=== PATIENT | male | born 1940 | race Caucasian/White ===

== ENCOUNTER → 2016-12-13 | Outpatient (CLI) | payer OTHER ==
[~2016-12-13] MED LIST: ALBUAER INH; ALLO100T PO; ATOR-14 PO; CLC100X PO; CLON0.5T3 PO; CLOP1TAB54 PO; CRAN500C5 PO; CYAN10005 PO; DICL1GEL12 TOP; DONE10TA12 PO; DONE5TAB9 PO; ENTE1TAB2 PO; FEXO1TAB46 PO; HYDR25TA5 PO; IPRASOL4 INH; KFL/250 PO; LEVO-366 PO; LEVO100T PO; LISI40TA PO; LUTE1CAP6 PO; MCRK/10 PO; MELA1CAP9 PO; MELA1TAB3 PO; MEMA1CAP7 PO; MENTOIN TOP; METO25TA3 PO; MULTIVIT PO; NZRCR TOP; OLAN-111 PO; OMEG10007 PO; OMEGCAP2 PO; POTA-327 PO; PSYLCAP5 PO; SYMIN160 INH; VIT D PO; ZNTT/150 PO
[2016-12-13 17:42] LABS: BASO % 0.4 %; BASO ABS # 0.03 K/uL (0-0.2); COMPLETE YES; EOS % 1.8 %; HEMATOCRIT 37.1 % (42-52); IG% 0.3 %; LYMPH % 14.7 %; LYMPH ABS # 1.17 K/uL (1.2-3.4); MEAN CORPUSCULAR HEMOGLOBIN 31.4 pg (25-34); MEAN CORPUSCULAR HGB CONC 35.3 g/dl (32-36); MEAN PLATELET VOLUME 9.5 fL (7.4-10.4); MONO % 8.1 %; NEUT % 74.7 %; PLATELET COUNT 199 K/uL (130-400); RED BLOOD COUNT 4.17 M/uL (4.7-6.1); WHITE BLOOD COUNT 7.98 K/uL (4.8-10.8)
[2016-12-13 17:46] LABS: BLOOD UREA NITROGEN 17 mg/dl (7-18); BUN/CREATININE RATIO 17.5 (10-20); CALCIUM 8.2 mg/dl (8.5-10.1); CARBON DIOXIDE 29 mmol/L (21-32); CHLORIDE 108 mmol/L (98-107); GLUCOSE 102 mg/dl (70-99); POTASSIUM 3.9 mmol/L (3.5-5.1); SODIUM 144 mmol/L (136-145)
[2016-12-13 17:57] LABS: ALB/GLOB RATIO 0.7 (0.9-2); ALKALINE PHOSPHATASE 59 U/L (45-117); ALT/SGPT 19 U/L (12-78); AST/SGOT 13 U/L (15-37); CHOLESTEROL 157 mg/dl (0-200); CHOLESTEROL/HDL RATIO 5.6; HDL CHOLESTEROL 28 mg/dl; LDL CHOLESTEROL CALCULATED 95 mg/dl; TRIGLYCERIDES 168 mg/dl (0-150); VERY LOW DENSITY LIPOPROT CALC 34 mg/dl
--- NOTE | 2016-12-17 10:18 | CODING QUERY MEDICAL NECESSITY ---
SUPPORTING DIAGNOSIS NEEDED A supporting diagnosis is required for the test/procedure performed on this patient in order for us to be reimbursed by the patient's insurance. Please provide a supporting diagnosis for the following test/procedure listed below next to the test name along with your signature. *If there is no additional diagnosis for this patient that would support the following test/procedure please document that below next to the test/procedure. Test(s)/Procedure(s) that require a supporting diagnosis: DOS 12/13 * PSA DIAGNOSIS: Provider Signature: Date: Thank you [facility] Once completed, please kindly fax back to [phone] For questions please call [phone]
== END | disposition home or self-care (01) ==
LOC: C.LABPBG 14:01
PROVIDERS: ATTEND Neuromusculoskeletal Medicine & OMM
DX: Z00.00 Encounter for general adult medical examination without abnormal findings (principal); E87.6 Hypokalemia; I10 Essential (primary) hypertension; Z12.5 Encounter for screening for malignant neoplasm of prostate

== ENCOUNTER 2016-12-23 17:02 | Emergency (ER) | payer BC, OTHER ==
[~2016-12-23] VITALS: Ht 177.8 cm; Wt 71.0 kg
[~2016-12-23 17:02] MED LIST changes: -CRAN500C5 PO; -DONE10TA12 PO; -KFL/250 PO; -LEVO-366 PO; -MCRK/10 PO; -MELA1CAP9 PO; -MEMA1CAP7 PO; -MENTOIN TOP; -OLAN-111 PO
[2016-12-23 17:07] VITALS: TEMP 36.6; O2SAT 98; Ht 177.8 cm; Wt 71.0 kg
[2016-12-23] MEDS ORDERED: MEMA1CAP7 PO (18:04)
[2016-12-23] MEDS ORDERED: DONE10TA12 PO (18:04)
[2016-12-23] MEDS ORDERED: MCRK/10 PO (18:04)
[2016-12-23] MEDS ORDERED: KFL/250 PO (18:04)
[2016-12-23] MEDS ORDERED: CRAN500C5 PO (18:04)
[2016-12-23] MEDS ORDERED: MELA1CAP9 PO (18:04)
[2016-12-23] MEDS ORDERED: CLC100X PO (18:04)
[2016-12-23] MEDS ORDERED: OLAN-111 PO (18:04)
[2016-12-23] MEDS ORDERED: MENTOIN TOP (18:04)
[2016-12-23] MEDS ORDERED: ALBUAER INH (18:04)
[2016-12-23 18:21] LABS: BASO % 0.2 %; BASO ABS # 0.02 K/uL (0-0.2); COMPLETE YES; EOS % 1.5 %; HEMATOCRIT 40.4 % (42-52); IG% 0.2 %; LYMPH % 11.6 %; LYMPH ABS # 1.18 K/uL (1.2-3.4); MEAN CORPUSCULAR HEMOGLOBIN 31.6 pg (25-34); MEAN CORPUSCULAR HGB CONC 35.9 g/dl (32-36); MEAN PLATELET VOLUME 9.7 fL (7.4-10.4); MONO % 6.6 %; NEUT % 79.9 %; PLATELET COUNT 135 K/uL (130-400); RED BLOOD COUNT 4.59 M/uL (4.7-6.1); WHITE BLOOD COUNT 10.18 K/uL (4.8-10.8)
--- NOTE | 2016-12-23 18:35 | DIAGNOSTIC IMAGING REPORT ---
CHEST ONE VIEW PORTABLE CLINICAL HISTORY: Weakness COMPARISON STUDY: 01/21/2015 FINDINGS: The heart is normal in size. There is a right pleural effusion with associated right basilar airspace opacities area these could be either atelectatic or secondary to a pneumonia. Clinical correlation and radiographic follow-up is recommended. Left lung is clear. There is no failure.[ IMPRESSION: Right pleural effusion with associated right basilar airspace opacities Electronically signed by: Oumar Kendrick M.D. 12/23/2016 6:33 PM Dictated Date/Time: 12/23/2016 6:33 PM
[2016-12-23 18:39] LABS: ALT/SGPT 15 U/L (12-78); AST/SGOT 16 U/L (15-37); BLOOD UREA NITROGEN 16 mg/dl (7-18); BUN/CREATININE RATIO 15.6 (10-20); CALCIUM 8.8 mg/dl (8.5-10.1); CARBON DIOXIDE 29 mmol/L (21-32); CHLORIDE 108 mmol/L (98-107); GLUCOSE 95 mg/dl (70-99); MAGNESIUM 2.2 mg/dl (1.8-2.4); POTASSIUM 3.9 mmol/L (3.5-5.1); SODIUM 144 mmol/L (136-145)
[2016-12-23 18:48] LABS: ALKALINE PHOSPHATASE 72 U/L (45-117); CKMB/CK RATIO 2.1 (0-3.0)
[2016-12-23 18:52] LABS: URINE APPEARANCE CLEAR (CLEAR); URINE COLOR DK YELLOW; URINE EPITHELIAL CELL AUTO >30 /lpf (0-5); URINE SPECIFIC GRAVITY 1.029 (1.000-1.030); UROBILINOGEN POS (NEG)
[2016-12-23 19:05] LABS: MANUAL MICROSCOPIC REQUIRED? NO; REVIEW REQ? YES; URINE BILIRUBIN NEG (NEG)
[2016-12-23 19:07] LABS: URINE NITRITE NEG (NEG)
[2016-12-23] MEDS ORDERED: LEVOFLOXACIN 250 MG TAB PO STA (20:26)
[2016-12-23] MEDS ORDERED: LEVO-366 PO (20:56)
[2016-12-23 20:58] VITALS: BP 161/113; PULSE 74; O2SAT 95
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
== END 2016-12-23 21:12 | disposition home or self-care (01) ==
LOC: EDBD 17:02 → C.EDA 17:04
DX: G93.41 Metabolic encephalopathy (principal); J18.9 Pneumonia, unspecified organism; G20 Parkinson's disease; Z86.73 Personal history of transient ischemic attack (TIA), and cerebral infarction without residual deficits; J43.9 Emphysema, unspecified; Z51.5 Encounter for palliative care; B19.10 Unspecified viral hepatitis B without hepatic coma; E78.5 Hyperlipidemia, unspecified; I10 Essential (primary) hypertension; E03.9 Hypothyroidism, unspecified; I25.2 Old myocardial infarction; G47.30 Sleep apnea, unspecified; Z87.440 Personal history of urinary (tract) infections; Z83.3 Family history of diabetes mellitus; Z79.899 Other long term (current) drug therapy